=== PATIENT | female | born 1955 | race Caucasian/White ===

== ENCOUNTER → 2018-07-28 | Outpatient (CLI) | payer OTHER | END | disposition home or self-care (01) | LOC: EDSTATUS 10:30 → CFH 10:34 | PROVIDERS: ATTEND Family Medicine | DX: Z12.31 Encounter for screening mammogram for malignant neoplasm of breast (principal) | CPT/HCPCS: 77067 ==

== ENCOUNTER → 2019-03-24 | Outpatient (CLI) | payer SELFPAY | END | disposition home or self-care (01) | LOC: EDSTATUS 03-16 13:00 → CVU 06:43 → EDSTATUS 07:00 | PROVIDERS: ATTEND Family Medicine | DX: M85.88 Other specified disorders of bone density and structure, other site (principal); I83.93 Asymptomatic varicose veins of bilateral lower extremities; M79.605 Pain in left leg; M79.604 Pain in right leg; N95.9 Unspecified menopausal and perimenopausal disorder | CPT/HCPCS: 77080; 93970 ==

== ENCOUNTER → 2020-08-11 | Outpatient (CLI) | payer SELFPAY | END | disposition home or self-care (01) | LOC: CFH 10:51 | PROVIDERS: ATTEND Family Medicine | DX: Z12.31 Encounter for screening mammogram for malignant neoplasm of breast (principal) | CPT/HCPCS: 77063; 77067 ==